=== PATIENT | male | born 2000 | race Caucasian/White ===

== ENCOUNTER 2020-07-25 09:15 | Emergency (ER) | payer OTHER ==
[~2020-07-25] VITALS: Ht 170.2 cm; Wt 68.0 kg
--- NOTE | 2020-07-25 09:25 | NUR ---
TO ER BED 10 AWAITING MD EVAL, NO BLEEDING NOTED,CMS INTACT
[2020-07-25 09:26] VITALS: BP 129/76
--- NOTE | 2020-07-25 09:26 | NUR ---
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 pt unable to recall last tetanus vaccine. awaitng md simpson.
[2020-07-25] MEDS ORDERED: LIDOCAINE 1%-EPI 1:100,000 20 ML VIAL ONE (09:29)
[2020-07-25] MEDS ORDERED: TDAP [DIPH/PERTUSSIS/TET] 0.5 ML VIAL IM ONE ×2 (09:33→10:00)
[2020-07-25] MEDS ORDERED: LIDOCAINE 1%-EPI 1:100,000 20 ML VIAL TP ONE (10:00)
== END 2020-07-25 10:27 | disposition home or self-care (01) ==
LOC: ER 09:19
DX: S51.812A Laceration without foreign body of left forearm, initial encounter (principal); Z98.890 Other specified postprocedural states; F17.200 Nicotine dependence, unspecified, uncomplicated; W22.8XXA Striking against or struck by other objects, initial encounter; Y93.89 Activity, other specified; Y92.098 Other place in other non-institutional residence as the place of occurrence of the external cause; Y99.8 Other external cause status
CPT/HCPCS: 12001; 90471; 90715; 99283; A6403; J3490

== ENCOUNTER 2020-08-06 12:18 | Emergency (ER) | payer OTHER ==
[~2020-08-06] VITALS: Ht 170.2 cm; Wt 71.7 kg
[2020-08-06 12:24] VITALS: BP 123/74
--- NOTE | 2020-08-06 12:25 | NUR ---
BIBS FOR SUTURE REMOVAL, LFA LAC REPAIRED LAST SATURDAY. NO BLEEDING. NO S/S INFECTION NOTED. DENIES PAIN. WILL CONTINUE TO MONITOR THE PATIENT.
--- NOTE | 2020-08-06 12:31 | NUR ---
SUTURES REMOVED BY DR FERRERA. NO BLEEDING AND NO S/S INFECTION NOTED. DENIES PAIN.
--- NOTE | 2020-08-06 12:40 | NUR ---
Patient discharged to home in stable condition. Written and verbal after care instructions given. Patient verbalizes understanding of instruction. The patient left ER in stable condition.
== END 2020-08-06 12:40 | disposition home or self-care (01) ==
LOC: ER 12:23
DX: S51.812D Laceration without foreign body of left forearm, subsequent encounter (principal); F17.200 Nicotine dependence, unspecified, uncomplicated; Z98.890 Other specified postprocedural states; X58.XXXD Exposure to other specified factors, subsequent encounter